=== PATIENT | female | born 1970 | race Caucasian/White ===

== ENCOUNTER 2024-03-19 08:39 | Emergency (ER) | payer BC, SELFPAY ==
[2024-03-19 08:56] VITALS: BP 132/77; PULSE 86; RESP 18; TEMP 36.8; O2SAT 97; BMI 21.6
--- NOTE | 2024-03-19 08:57 | ED_ITS ---
Discharge Plan Disposition Patient Disposition: Home, Self-Care Condition: Good Prescriptions Prescriptions: New dexamethasone 6 mg tablet 6 mg PO DAILY 6 Days Qty: 6 0RF No Action albuterol sulfate 90 mcg/actuation HFA aerosol inhaler 2 puff INHALATION Q6H PRN Duexis 800-26.6 mg tablet 1 tab PO TID levothyroxine 125 mcg capsule 125 mcg PO DAILY metoprolol succinate 25 mg tablet extended release 24 hr 25 mg PO DAILY pantoprazole 40 mg tablet,delayed release (DR/EC) 40 mg PO DAILY Linzess 72 mcg capsule 72 mcg PO DAILY atorvastatin 40 mg tablet 40 mg PO DAILY eletriptan 40 mg tablet 40 mg PO Q2H PRN Rx Instructions: do not exceed 2 doses per 24 hrs fluticasone propionate 50 mcg/actuation spray,suspension 2 spray INTRANASAL DAILY Rx Instructions: administer into each nostril cyclobenzaprine 10 mg tablet 10 mg PO ONCE trazodone 100 mg tablet 100 mg PO DAILY budesonide-formoterol 160-4.5 mcg/actuation HFA aerosol inhaler 2 puff INHALATION BID cholecalciferol (vitamin D3) 325 mcg (13,000 unit) capsule 325 mcg PO WEEKLY aspirin [Adult Aspirin Regimen] 81 mg tablet,delayed release (DR/EC) 81 mg PO DAILY multivitamin Tablet 1 tab PO DAILY fluconazole [Diflucan] 150 mg tablet 150 mg PO Q3D 1 Days Qty: 1 0RF conjugated estrogens 1.25 mg tablet 1.25 mg PO DAILY Qty: 90 4RF Referrals Follow up/Referrals: Pelon Peck [Primary Care Provider] - See instructions Activity Restrictions/Add. Instructions Additional Instructions/Restrictions: Drink plenty of fluids. Take tylenol for pain or fever. Take the medications as directed. Follow up with your regular doctor. GO TO THE ER FOR ANY WORSENING SYMPTOMS Clinical Impressions Clinical Impression: COVID-19 Stand Alone Forms Stand Alone Forms: Work/School Release Instructions Patient Instructions: Chronic Obstructive Pulmonary Disease, Dexamethasone, Coronavirus Disease 2019, Preventing the Spread of Coronavirus Discharge Instructions Discharge ED Provider: Thomas Tyler [facility] [place] HPI General Stated complaint: Sore throat, body aches, headache, pos home covid Time Seen by Provider: 03/19/24 08:57 History of Present Illness Provider Complaint: She states that for the past 2 days she has had fever/chills/body aches, headache, scratchy throat, and malaise. She has a history of copd. She tested positive on a home covid-19 test last night. She denies shortness of breath. Related Data Home Medications Medication Instructions Recorded Confirmed albuterol sulfate 90 mcg/actuation 2 puff inhalation Q6H PRN 04/15/21 04/15/21 aerosol inhaler aspirin 81 mg tablet,delayed 81 mg PO DAILY 04/15/21 04/15/21 release (Adult Aspirin Regimen) atorvastatin 40 mg tablet 40 mg PO DAILY 04/15/21 04/15/21 budesonide-formoterol HFA 160 2 puff inhalation BID 04/15/21 04/15/21 mcg-4.5 mcg/actuation aerosol inhaler cholecalciferol (vitamin D3) 325 325 mcg PO WEEKLY 04/15/21 04/15/21 mcg (13,000 unit) capsule cyclobenzaprine 10 mg tablet 10 mg PO ONCE 04/15/21 04/15/21 eletriptan 40 mg tablet 40 mg PO Q2H PRN 04/15/21 04/15/21 fluticasone propionate 50 2 spray intranasal DAILY 04/15/21 03/19/24 mcg/actuation nasal spray,suspension ibuprofen 800 mg-famotidine 26.6 1 tab PO TID 04/15/21 03/19/24 mg tablet (Duexis) levothyroxine 125 mcg capsule 125 mcg PO DAILY 04/15/21 03/19/24 linaclotide 72 mcg capsule 72 mcg PO DAILY 04/15/21 04/15/21 (Linzess) metoprolol succinate 25 mg 25 mg PO DAILY 04/15/21 04/15/21 tablet,extended release 24 hr multivitamin 1 tab PO DAILY 04/15/21 04/15/21 pantoprazole 40 mg tablet,delayed 40 mg PO DAILY 04/15/21 04/15/21 release trazodone 100 mg tablet 100 mg PO DAILY 04/15/21 04/15/21 Previous Rx's Medication Instructions Recorded fluconazole 150 mg tablet 150 mg PO Q3D 1 day #1 tab 05/16/21 (Diflucan) conjugated estrogens 1.25 mg tablet 1.25 mg PO DAILY #90 tabs 02/04/22 dexamethasone 6 mg tablet 6 mg PO DAILY 6 days #6 tabs 03/19/24 Allergies Allergy/AdvReac Type Severity Reaction Status Date / Time No Known Drug Allergies Allergy Mild Unverified 04/15/21 14:50 [NKDA] [facility] Disclaimer: The information contained in this section may have been updated after the patient was seen, as this information can be updated by other users. Medical History (Updated 03/19/24 @ 09:18 by Thomas Tyler APRN) Migraines COPD (chronic obstructive pulmonary disease) Heart attack Surgical History (Updated 03/19/24 @ 09:00 by Cassidy Mcgraw RN) H/O: hysterectomy Tubal ligation status Social History Smoking Status: Current every day smoker alcohol intake: never current occupational status: other Travel in the last 8 weeks: None ROS Obtained: Yes All systems reviewed & no additional complaints except as documented Constitutional Constitutional: Reports chills and Reports fever(s) Eyes Eyes: Denies eye discharge ENT Ears, Nose, Mouth, and Throat: Reports as per HPI Cardiovascular Cardiovascular: Denies chest pain Respiratory Respiratory: Denies chest congestion and Reports cough Gastrointestinal Gastrointestingal: Reports nausea; Denies abdominal pain, constipation, cramping, diarrhea or vomiting Musculoskeletal Musculoskeletal: Denies arthralgias Integumentary/Breasts Skin/Breast: Denies rash Neurologic Neurologic: Denies paresthesias Physical Exam General General appearance: alert and in no apparent distress Eye Eye exam: Present normal appearance, PERRL and EOMI ENT ENT exam: Present mucous membranes moist and normal external ear exam Expanded ENT Exam External ear exam: Present normal external inspection TM/Canal exam: Bilateral TM: erythema and bulging Nose exam: Absent sinus tenderness Nasal speculum exam: Bilateral: normal Mouth exam: Present normal external inspection; Absent drooling Teeth exam: Present normal inspection Throat exam: Present tonsillar erythema and tonsillomegaly Neck Neck exam: Present normal inspection, full ROM and trachea midline; Absent tenderness, lymphadenopathy or thyromegaly Chest Chest inspection: Present normal inspection and symmetric chest wall rise; Absent tenderness or rash Respiratory Respiratory exam: Present normal lung sounds bilaterally; Absent respiratory distress, wheezes, stridor or accessory muscle use Cardiovascular Cardiovascular exam: Present regular rate, normal rhythm and normal heart sounds Abdominal Exam Abdominal exam: Present soft; Absent distention, tenderness, guarding, rebound or rigidity Extremities Exam Extremities exam: Present normal inspection, full ROM and normal capillary refill; Absent tenderness or calf tenderness Back Exam Back exam: Present normal inspection and full ROM; Absent tenderness Neurological Exam Neurological exam: Present alert and oriented X3 Psychiatric Psychiatric exam: Present normal affect and normal mood Skin Skin exam: Present warm, dry, intact and normal color Lymphatic Lymphatic Findings: no adenopathy Medical Decision Making Medical Records Medical records reviewed: No I reviewed the patient's medical records. [place] Inquiry Pt receiving controlled substance: No Orders (Tests/Meds): ORDERS Category Date Time Status Covid-19 Nasal PCR ([facility]) Routine Lab 03/19/24 08:53 Received
[2024-03-19 09:26] VITALS: BP 132/77; PULSE 86; RESP 18; TEMP 36.8; O2SAT 97
== END 2024-03-19 09:27 | disposition home or self-care (01) ==
PROVIDERS: Emergency Provider Nurse Practitioner Family; PCP Family Medicine
DX: U07.1 COVID-19 (principal); R50.9 Fever, unspecified; R07.0 Pain in throat; R51.9 Headache, unspecified
CPT/HCPCS: 87635; 99204; 99212; G0463